=== PATIENT | male | born 1990 | race Caucasian/White ===

== ENCOUNTER 2024-02-16 11:40 | Emergency (ER) | payer SELFPAY ==
[~2024-02-16] VITALS: Ht 167.6 cm; Wt 77.3 kg
[2024-02-16] MEDS ORDERED: NS 1,000 ML IV ONE (11:45)
[2024-02-16 11:52] VITALS: BP 123/84; TEMP 98.2
[2024-02-16 13:56] VITALS: PULSE 98
== END 2024-02-16 13:35 | disposition home or self-care (01) ==
LOC: COL.ER 11:40
DX: B34.9 Viral infection, unspecified (principal); R09.81 Nasal congestion; R05.9 Cough, unspecified